=== PATIENT | male | born 1985 | race Caucasian/White ===

== ENCOUNTER 2017-11-30 17:25 | Emergency (ER) | payer OTHER ==
[~2017-11-30] VITALS: Ht 188 cm; Wt 121.1 kg
[2017-11-30 18:27] VITALS: Ht 188 cm; Wt 121.1 kg
[2017-11-30 23:59] VITALS: BP 138/76
== END 2017-12-01 | disposition home or self-care (01) ==
LOC: ED 17:25
DX: J45.901 Unspecified asthma with (acute) exacerbation (principal); I10 Essential (primary) hypertension; F17.210 Nicotine dependence, cigarettes, uncomplicated
CPT/HCPCS: J7512; J7613; J7644